=== PATIENT | male | born 1985 | race Caucasian/White ===

== ENCOUNTER 2016-10-09 11:05 | Emergency (ER) | payer OTHER ==
[~2016-10-09] VITALS: Ht 177.8 cm; Wt 81.4 kg
[~2016-10-09 11:05] MED LIST: HYDR-5688 PO; PENI-82 PO
[2016-10-09 11:22] VITALS: TEMP 37.1; Ht 177.8 cm; Wt 81.4 kg
[2016-10-09] MEDS ORDERED: OXYCODONE HCL IR 5 MG TAB (IMMEDIATE RELEASE) PO STA (12:19)
[2016-10-09] MEDS ORDERED: IBUPROFEN 600 MG TAB PO STA (12:19)
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
[2016-10-09] MEDS ORDERED: OXYC1TAB3 PO (13:24)
[2016-10-09 13:47] VITALS: BP 113/73; PULSE 70; O2SAT 95
== END 2016-10-09 13:48 | disposition home or self-care (01) ==
LOC: C.EDB 11:05 → C.EDA 13:48
DX: S20.212A Contusion of left front wall of thorax, initial encounter (principal); V28.0XXA Motorcycle driver injured in noncollision transport accident in nontraffic accident, initial encounter; F17.210 Nicotine dependence, cigarettes, uncomplicated

== ENCOUNTER 2017-04-13 12:57 | Emergency (ER) | payer OTHER ==
[~2017-04-13] VITALS: Ht 177.8 cm; Wt 68.0 kg
[2017-04-13 13:06] VITALS: TEMP 36.5; Ht 177.8 cm; Wt 68.0 kg
--- NOTE | 2017-04-13 13:58 | EMERGENCY ROOM VISIT NOTE ---
ED Visit Note First contact with patient: 13:36 CHIEF COMPLAINT: Finger laceration HISTORY OF PRESENT ILLNESS: This 31-year-old male patient presents to the emergency department immediately after cutting the left third finger with a circular saw work. The bleeding has stopped. Denies weakness or numbness of the finger. The patient has full range of motion of the fingers. The patient rates the pain as minimal and 2/10. The patient denies any other injuries. The patient's tetanus shot is not up to date. REVIEW OF SYSTEMS: A 6 system review of systems was completed with positives and pertinent negatives listed in the HPI. ALLERGIES: No known drug allergies MEDICATIONS: Reviewed PMH: Otherwise healthy SOCIAL HISTORY: The patient denies any alcohol use. The incident happened at work. PHYSICAL EXAM: Vital Signs: Reviewed Nurse's notes, vital signs stable. GENERAL : 31-year-old male, in no acute distress, well developed, well nourished. SKIN : There is a 1 cm long laceration on the distal aspect of the left third finger. The laceration is superficial. There is no active bleeding. The wound edges do not deep with traction. Extension and flexion of the finger is full and strong. Full range of motion of the wrist and other fingers. Capillary refill less than 2 seconds. Normal sensation to light and sharp touch. EMERGENCY DEPARTMENT COURSE: I examined the patient. Verbal consent was obtained to perform the procedure. The wound was thoroughly cleansed with Betadine and irrigated with normal saline. Dermabond was applied to the wound. The patient tolerated the procedure well. The patient was discharged home in good condition. DIAGNOSIS: Finger laceration DISCHARGE INSTRUCTIONS & TREATMENT: Keep the wound clean. Wash daily with soap and water. Please do not apply any ointments to the glue. The glue will wear off naturally. Please watch for any signs of infection such as increased redness, swelling or fever. This chart was completed in part utilizing [employer] Speech Voice Recognition software. Attempts were made to minimize the grammatical errors, random word insertions, pronoun errors and incomplete sentences. Any formal questions or concerns about the content, text or information contained within the body of this dictation should be directly addressed to the provider for clarification.
[2017-04-13] MEDS ORDERED: DIPHTHERIA/TETANUS/PERTUSSIS 0.5 ML SYR/VIAL IM. ONE (14:00)
[2017-04-13 14:26] VITALS: BP 130/88; PULSE 73; O2SAT 100
== END 2017-04-13 14:27 | disposition home or self-care (01) ==
LOC: C.EDB 12:58 → C.EDD 14:27
DX: S61.213A Laceration without foreign body of left middle finger without damage to nail, initial encounter (principal); W31.2XXA Contact with powered woodworking and forming machines, initial encounter; Y99.0 Civilian activity done for income or pay; Z23 Encounter for immunization

== ENCOUNTER 2017-08-27 22:55 | Emergency (ER) | payer SELFPAY ==
[~2017-08-27] VITALS: Ht 170.2 cm; Wt 66.9 kg
[2017-08-27 23:01] VITALS: TEMP 36.4; Ht 170.2 cm; Wt 66.9 kg
[2017-08-27] MEDS ORDERED: LIDOCAINE/EPINEPHRINE 1% 20 ML VIAL INFIL ONE (23:30)
[2017-08-28 00:20] VITALS: BP 127/69; PULSE 95; O2SAT 98
[2017-08-28] MEDS ORDERED: CEPH-571 PO (00:21)
--- NOTE | 2017-08-28 00:22 | EMERGENCY ROOM VISIT NOTE ---
History First contact with patient: 23:09 Chief Complaint: LACERATION/CUT (NON-SUTURE) Stated Complaint: CUT ON LEFT THUMB/KNUCKLE Nursing Triage Summary: pt cut left thumb/hand on pocket knife History of Present Illness The patient is a 31 year old male who presents to the Emergency Room with complaints of a laceration to his left hand. The patient states that approximately 8 hours prior to arrival, he was attempting to open 1 of his daughter's birthday presents with a pocket knife when he slipped and cut his hand. He states that he was planning to suture his own wound, however he thought he may have seen the tendon in the base of the wound and decided to come here for evaluation. He rates his discomfort a 7/10 and states that his stinging. His tetanus is up-to-date. He denies numbness or weakness of the thumb. Review of Systems A complete 10 point review of systems was reviewed with the patient with pertinent positives and negatives as per history of present illness. All else were negative. Past Medical/Surgical History Medical Problems: (1) No Known Active Medical Problems Family History Patient reports no known family medical history. Social History Smoking Status: Current Every Day Smoker Alcohol Use: none Drug Use: none Marital Status: single Occupation Status: employed Current/Historical Medications Scheduled Cephalexin (Keflex), 1 CAP PO QID Physical Exam Vital Signs Date Time Temp Pulse Resp B/P (MAP) Pulse Ox O2 Delivery O2 Flow Rate FiO2 08/28/17 00:20 95 18 127/69 98 Room Air 08/27/17 23:01 36.4 105 18 133/82 98 Room Air Physical Exam VITALS: Vitals are noted on the nurse's note and reviewed by myself. Vital signs stable. GENERAL: This is a 31-year-old male, in no acute distress, nondiaphoretic, well- developed well-nourished. SKIN: There is a 4 cm gaping laceration across the dorsal aspect of the left hand, just proximal to the thumb. The bursa is seen within the base of the wound. No tendons, bones or significant vessels identified. MUSCULOSKELETAL: Full range of motion of the left thumb. Normal flexion and extension against resistance. Capillary refill within 2 seconds. NEURO: Patient was alert and oriented to person place and time. Normal sensation of the left thumb.. Medical Decision & Procedures Medications Administered Medications (Trade) Dose Ordered Sig/Kodak Route Start Time Stop Time Status Last Admin Dose Admin Lidocaine/ Epinephrine (Xylocaine/Epine 1% Inj) 20 ml ONE ONCE INFIL 08/27/17 23:30 08/27/17 23:31 DC 08/27/17 23:30 20 ML Cephalexin Monohydrate (Keflex 500MG Home Pack) 1 homepack NOW ONCE PO 08/28/17 00:30 08/28/17 00:31 DC 08/28/17 00:21 1 HOMEPACK Procedure Verbal consent was obtained to perform the procedure. Using sterile technique the wound was cleaned with Betadine. The area was sterilely draped. 4 ml of 1 % buffered lidocaine with epinephrine was used to anesthetize the left hand laceration. Once the patient was anesthetized, the wound was copiously irrigated under pressure with sterile saline. The wound was explored. The laceration was repaired using 6 simple interrupted 5-0 nylon sutures with the wound edges being well approximated. The patient tolerated the procedure well. Hemostasis was achieved. The area was cleaned with sterile saline and dressed with bacitracin ointment and bandage. Medical Decision The patient was evaluated as above. He presents with a laceration to the left hand. He was concerned about possible tendon injury. His tendon is not visible , however the bursa is visible in the base of the wound and does not appear to be injured. Patient will be placed on Keflex due to the depth of the wound and since it happened several hours ago. He was placed in a metal finger splint. He was given information for orthopedic hand surgery and instructed to follow- up only if he has concerns or numbness/weakness of the thumb. Suture care instructions were discussed with the patient. He verbalized understanding of my assessment and treatment plan and was discharged home in good condition. Medication Reconcilliation Current Medication List: was personally reviewed by me Blood Pressure Screening Patient's blood pressure: Normal blood pressure Impression Primary Impression: Laceration of hand Departure Information Dispostion Home / Self-Care Condition GOOD Prescriptions Cephalexin (KEFLEX) 500 Mg Cap 1 CAP PO QID for 6 Days, #24 CAP Prov: Lalita Valle PA-C 08/28/17 Referrals No Doctor, Assigned (PCP) Oleg Carpenter MD Patient Instructions My [facility] Additional Instructions You have received 6 sutures on your hand. These sutures are NOT dissolvable and WILL need to be removed by a health care provider in 8-10 days. You can return to the Emergency Department or contact your Primary Care Provider to have the sutures removed. You were prescribed Keflex to be taken 4 times daily for a total of 7 days. This is an antibiotic. All antibiotics have the potential to cause diarrhea. Stop this medication and contact a medical provider if you were to develop any significant adverse side effects including: wheezing, shortness of breath, passing out, vomiting, or a diffuse rash. Always take antibiotics as directed and COMPLETE the ENTIRE course regardless of the improvement of your symptoms. Proper wound care is essential for adequate wound healing and infection prevention. You can shower and clean the wound with soap and water. Do not scour over the wound, pat dry with a towel. Do not submerse the wound (i.e. bathe or dish wash) until the sutures have been removed. You can use an antibiotic ointment with a dressing over the wound for the next 3-4 days. After this time you may leave the wound dry and open to the air. If crust develops over the wound you can use a Q-tip to apply a 1:1 peroxide:water solution to clean the wound. Look for signs of infection of the wound including: increased pain, swelling, foul discharge, streaking, or increased temperature. If any of these are noticed you should return to the Emergency Department for further assessment and treatment. As with any laceration you may have received nerve damage to the surrounding tissues. This damage may or may not be permanent. You should keep the area covered with sunscreen for the first 6 months to 1 year when at risk for exposure to help minimize scarring. You can also use scar reducing creams or Vitamin E oil to help minimize scarring. For pain control, you can use the following [id number] medicines (if >12 yo): - Regular strength (325mg/tab) Tylenol (acetaminophen) 2 tabs every 4-6 hours as needed. Do not exceed 12 tablets in a 24 hour period. Avoid taking more than 4 grams (4000 mg) of Tylenol per day. This includes any other sources of acetaminophen you may take on a regular basis. - Regular strength (200 mg/tab) Advil (ibuprofen) 1-2 tabs every 4-6 hours as needed. Do not exceed a dose of 3200 mg per day. Follow-up with Dr. Carpenter if you develop any sensation changes in thumb or difficulty moving the thumb. Return to the emergency department if your symptoms worsen despite treatment course outlined above. Problem Qualifiers Primary Impression: Laceration of hand Encounter type: initial encounter Foreign body presence: without foreign body Laterality: left Qualified Codes: S61.412A - Laceration without foreign body of left hand, initial encounter
[2017-08-28] MEDS ORDERED: CEPHALEXIN 500MG HOME PACK 1 EA BTL PO ONE (00:30)
== END 2017-08-28 00:28 | disposition home or self-care (01) ==
LOC: C.EDB 22:57 → C.EDC 08-28 00:28
DX: S61.412A Laceration without foreign body of left hand, initial encounter (principal); W26.0XXA Contact with knife, initial encounter; F17.200 Nicotine dependence, unspecified, uncomplicated